=== PATIENT | female | born 1950 | race American Indian/Alaskan Native ===

== ENCOUNTER 2018-04-07 08:41 | Emergency (ER) | payer MEDICARE ==
[2018-04-07 08:52] VITALS: RESP 18; O2SAT 98
--- NOTE | 2018-04-07 09:15 | ED PDOC ---
Arrival/HPI - General Historian: Patient - History of Present Illness Narrative History of Present Illness (Text): 04/07/18 09:15 Patient is a 67 year old female with past medical history of hypertension who presented to the emergency department for cough since March 23. Initially she reports having an episode of greenish phelgm production that has since resolved. Patient states that she was seen by her PMD on March 27 who prescribed her a nasal spray. Since then the cough has not improved, it is currently non-productive and associated with dyspnea on exertion. She reports taking a homeopathic cough syrup for 3 days with no improvement. Yesterday she took Theraflu and Tylenol cold/sinus with no improvement as well. She also reports having mid back pain that is associated with the cough. Pain is more on the left side and radiates down the back. For the back pain she has tried taking motrin with some relief. She denies any fevers, chills, headaches, dizziness, runny nose, sore throat, sick contacts, recent travel. Time/Duration: < week Symptom Onset: Gradual Symptom Course: Unchanged Severity Level: Mild <Yelena Mayes - Last Filed: 04/07/18 13:41> <Asim Tay - Last Filed: 04/07/18 16:14> - General Chief Complaint: Cough, Cold, Congestion Past Medical History - Provider Review Nursing Documentation Reviewed: Yes - Travel History Have you recently traveled outside [place] w/in the past 3 mons?: No - Cardiac Hx Hypertension: Yes - Pulmonary Hx Respiratory Disorders: No - Neurological Hx Neurological Disorder: No - HEENT Hx HEENT Disorder: No - Renal Hx Renal Disorder: No - Endocrine/Metabolic Hx Endocrine Disorders: No - Hematological/Oncological Hx Blood Disorders: No - Integumentary Hx Dermatological Disorder: No - Musculoskeletal/Rheumatological Hx Musculoskeletal Disorders: No - Gastrointestinal Hx Gastrointestinal Disorders: No - Genitourinary/Gynecological Hx Genitourinary Disorders: No - Psychiatric Hx Psychophysiologic Disorder: No Hx Substance Use: No - Surgical History Hx Cholecystectomy: Yes Hx Hysterectomy: Yes Other/Comment: Lap band <Yelena Mayes - Last Filed: 04/07/18 13:41> Family/Social History - Physician Review Nursing Documentation Reviewed: Yes Family/Social History: Diabetes, Neoplasm/Cancer Smoking Status: Never Smoked Hx Alcohol Use: Yes Frequency of alcohol use: Socially Hx Substance Use: No Hx Substance Use Treatment: No <Yelena Mayes - Last Filed: 04/07/18 13:41> Allergies/Home Meds <Yelena Mayes - Last Filed: 04/07/18 13:41> <Asim Tay - Last Filed: 04/07/18 16:14> Allergies/Adverse Reactions: Allergies LAZARO Inhibitors Allergy (Verified 04/07/18 08:52) WHEEZING shellfish derived Allergy (Verified 04/07/18 08:52) WHEEZING Home Medications: Home Meds Medication Instructions Recorded Confirmed Losartan/Hydrochlorothiazide 1 tab PO DAILY 04/07/18 04/07/18 [Losartan-Hctz 100-25 mg Tab] Review of Systems - Review of Systems Constitutional: absent: Fevers, Night Sweats Eyes: absent: Vision Changes Respiratory: SOB, Cough. absent: Sputum, Wheezing Cardiovascular: absent: Chest Pain, Palpitations Gastrointestinal: absent: Abdominal Pain Genitourinary Female: absent: Dysuria, Frequency Musculoskeletal: Back Pain Skin: absent: Rash Neurological: absent: Headache, Dizziness Endocrine: absent: Diaphoresis <Yelena Mayes - Last Filed: 04/07/18 13:41> Physical Exam Vital Signs Reviewed: Yes Vital Signs Temp Pulse Resp BP Pulse Ox 04/07/18 08:48 97.8 F 79 18 117/84 98 Temperature: Afebrile Blood Pressure: Normal Pulse: Regular Respiratory Rate: Normal Appearance: Positive for: Well-Appearing, Non-Toxic Pain Distress: Mild Mental Status: Positive for: Alert and Oriented X 3 - Systems Exam Head: Present: Atraumatic, Normocephalic Pupils: Present: PERRL Extroacular Muscles: Present: EOMI Conjunctiva: Present: Normal Ears: Present: NORMAL TM, Other (Right TM not visualized due to wax) Mouth: Present: Moist Mucous Membranes Pharnyx: Present: Normal. No: ERYTHEMA, EXUDATE, TONSILS ENLARGED, Uvular Deviation Nose (External): Present: Atraumatic Nose (Internal): Present: Normal Inspection Neck: Present: Normal Range of Motion. No: Lymphadenopathy Respiratory/Chest: Present: Clear to Auscultation. No: Respiratory Distress Cardiovascular: Present: Regular Rate and Rhythm, Normal S1, S2. No: Murmurs Abdomen: Present: Normal Bowel Sounds. No: Tenderness, Distention Lower Extremity: Present: Normal Inspection Neurological: Present: GCS=15 Skin: Present: Warm, Dry Psychiatric: Present: Alert, Oriented x 3, Normal Insight <Yelena Mayes - Last Filed: 04/07/18 13:41> Vital Signs Temp Pulse Resp BP Pulse Ox 04/07/18 08:48 97.8 F 79 18 117/84 98 <Asim Tay - Last Filed: 04/07/18 16:14> Medical Decision Making ED Course and Treatment: 04/07/18 10:19 Patient seen and evaluated with Dr Tay. We will order Chest X-ray to r/o pneumonia at this time. - RAD Interpretation Narrative RAD Interpretations (Text): 04/07/18 11:29 Chest X-ray: No active disease Informatics Coordinator: Radiologist <Yelena Mayes - Last Filed: 04/07/18 13:41> ED Course and Treatment: 04/07/18 11:06 Patient Seen with Provider In agreement with resident note which contains more details about the patient. Patient seen and evaluated with resident. Came up with plan and treatment together. Impression: 67 year old female who presents to the emergency department complaining of cough. 04/07/18 16:12 patient seen and examined by myself, patient seen for dry cough, worse while lying flat, cxr negative for focal infiltrate,presentation consistent with postnasal drip as on physical exam there was cobblestoning and mucus noted in the post pharynx,supportive care and prn sudafed. - RAD Interpretation Radiology Orders: 04/07/18 10:19 CXR [CHEST TWO VIEWS (PA/LAT)] [RAD] Stat <Asim Tay - Last Filed: 04/07/18 16:14> - Scribe Statement The provider has reviewed the documentation as recorded by the Scribnery Marques Provider Scribe Attestation: All medical record entries made by the Scribe were at my direction and personally dictated by me. I have reviewed the chart and agree that the record accurately reflects my personal performance of the history, physical exam, medical decision making, and the department course for this patient. I have also personally directed, reviewed, and agree with the discharge instructions and disposition. <Asim Tay - Last Filed: 04/07/18 16:14> Disposition/Present on Arrival - Present on Arrival Any Indicators Present on Arrival: No History of DVT/PE: No History of Uncontrolled Diabetes: No Urinary Catheter: No History of Decub. Ulcer: No History Surgical Site Infection Following: None - Disposition Have Diagnosis and Disposition been Completed?: Yes Disposition Time: 12:24 Patient Plan: Discharge <Yelena Mayes - Last Filed: 04/07/18 13:41> - Present on Arrival Any Indicators Present on Arrival: No - Disposition Have Diagnosis and Disposition been Completed?: Yes <Asim Tay - Last Filed: 04/07/18 16:14> - Disposition Diagnosis: Post-nasal drip, Cough in adult, Upper respiratory infection Disposition: HOME/ ROUTINE Condition: STABLE Discharge Instructions (ExitCare): Cough in Adults, Viral Upper Respiratory Infection, Adult (DC) Additional Instructions: Follow up with your primary care doctor. Call tomorrow to make an appointment. ASHELY STEWARD, thank you for letting us take care of you today. Your provider was Dr. Asim Tay and you were treated for COUGH. The emergency medical care you received today was directed at your acute symptoms. If you were prescribed any medication, please fill it and take as directed. It may take several days for your symptoms to resolve. Return to the Emergency Department if your symptoms worsen, do not improve, or if you have any other problems. Please contact your doctor or call one of the physicians/clinics you have been referred to that are listed on the Patient Visit Information form that is included in your discharge packet. Bring any paperwork you were given at discharge with you along with any medications you are taking to your follow up visit. Our treatment cannot replace ongoing medical care by a primary care provider outside of the emergency department. Thank you for allowing the [facility] team to be part of your care today. If you had an X-Ray or CT scan: A Radiologist will review the ED reading if any change in treatment is needed we will contact you. If you had a blood, urine, or wound culture: It will take several days for the results, if any change in treatment is needed we will contact you. If you had an STI test: It will take 48 hours for the results. Please call after 1 week if you have not heard back. Prescriptions: Pseudoephedrine HCl [Sudafed] 30 mg PO QID 5 Days #20 tablet Referrals: Teresa Cuello MD [Primary Care Provider] - Follow up with primary Forms: [employer] ([place]), WORK NOTE
--- NOTE | 2018-04-07 11:26 | RAD ---
Date of service: 04/07/2018 HISTORY: cough, pneumonia COMPARISON: No prior. TECHNIQUE: Chest PA and lateral FINDINGS: LUNGS: No active pulmonary disease. PLEURA: No significant pleural effusion identified. No pneumothorax apparent. CARDIOVASCULAR: No aortic atherosclerotic calcification present. Normal cardiac size. No pulmonary vascular congestion. OSSEOUS STRUCTURES: No significant abnormalities. VISUALIZED UPPER ABDOMEN: Normal. OTHER FINDINGS: None. IMPRESSION: No active disease.
[2018-04-07 12:34] VITALS: BP 120/78; PULSE 78; TEMP 98.6
== END 2018-04-07 12:33 | disposition home or self-care (01) ==
LOC: ED 08:41
DX: J06.9 Acute upper respiratory infection, unspecified (principal); I10 Essential (primary) hypertension